=== PATIENT | male | born 1980 | race Caucasian/White ===

== ENCOUNTER 2019-05-15 14:02 | Emergency (ER) | payer OTHER ==
[~2019-05-15] VITALS: Ht 177.8 cm; Wt 90.7 kg
[2019-05-15] MEDS ORDERED: NASAL MIST126 ML (14:25)
[2019-05-15] MEDS ORDERED: TYLENOL325 MG (14:25)
== END 2019-05-15 16:20 | disposition home or self-care (01) ==
LOC: ER 14:02
DX: B34.9 Viral infection, unspecified (principal)

== ENCOUNTER 2019-05-27 03:15 | Emergency (ER) | payer OTHER ==
[~2019-05-27] VITALS: Ht 177.8 cm; Wt 90.7 kg
[~2019-05-27 03:15] MED LIST: NASAL MIST126 ML; TYLENOL325 MG
== END 2019-05-27 05:36 | disposition home or self-care (01) ==
LOC: ER 03:15
DX: R06.02 Shortness of breath (principal); F41.8 Other specified anxiety disorders

== ENCOUNTER 2020-02-21 18:20 | Emergency (ER) | payer OTHER ==
[~2020-02-21] VITALS: Ht 177.8 cm; Wt 90.7 kg
[2020-02-21] MEDS ORDERED: PANADOL EXTRA500 MG (18:40)
== END 2020-02-21 22:10 | disposition home or self-care (01) ==
LOC: ER 18:20
DX: J31.2 Chronic pharyngitis (principal); Z03.818 Encounter for observation for suspected exposure to other biological agents ruled out

== ENCOUNTER 2020-03-01 15:06 | Emergency (ER) | payer OTHER ==
[~2020-03-01] VITALS: Ht 177.8 cm; Wt 90.7 kg
[~2020-03-01 15:06] MED LIST changes: +PANADOL EXTRA500 MG
== END 2020-03-01 18:34 | disposition home or self-care (01) ==
LOC: ER 15:06
DX: R59.0 Localized enlarged lymph nodes (principal)

== ENCOUNTER 2020-10-21 02:31 | Emergency (ER) | payer OTHER ==
[~2020-10-21] VITALS: Ht 177.8 cm; Wt 90.7 kg
== END 2020-10-21 04:42 | disposition home or self-care (01) ==
LOC: ER 02:31
DX: J02.8 Acute pharyngitis due to other specified organisms (principal); Z20.822 Contact with and (suspected) exposure to COVID-19

== ENCOUNTER 2021-01-14 21:18 | Emergency (ER) | payer OTHER ==
[~2021-01-14] VITALS: Ht 170.2 cm; Wt 97.5 kg
[2021-01-14] MEDS ORDERED: CARAFATE1 GM PO (21:58)
== END 2021-01-14 22:06 | disposition home or self-care (01) ==
LOC: ER 21:18
DX: E16.1 Other hypoglycemia (principal)

== ENCOUNTER 2021-01-31 15:16 | Emergency (ER) | payer OTHER ==
[~2021-01-31] VITALS: Ht 177.8 cm; Wt 90.7 kg
[~2021-01-31 15:16] MED LIST changes: +CARAFATE1 GM PO
[2021-01-31] MEDS ORDERED: OMEPRAZOLE (16:06)
== END 2021-01-31 16:48 | disposition home or self-care (01) ==
LOC: ER 15:16
DX: R03.0 Elevated blood-pressure reading, without diagnosis of hypertension (principal)

== ENCOUNTER 2021-05-05 23:18 | Emergency (ER) | payer OTHER ==
[~2021-05-05] VITALS: Ht 177.8 cm; Wt 90.7 kg
[~2021-05-05 23:18] MED LIST changes: +OMEPRAZOLE
[2021-05-06] MEDS ORDERED: ZYNCOF 20-400120 ML PO (03:26)
== END 2021-05-06 04:07 | disposition home or self-care (01) ==
LOC: ER 23:18
DX: U07.1 COVID-19 (principal); R50.9 Fever, unspecified; Z88.6 Allergy status to analgesic agent; Z88.0 Allergy status to penicillin

== ENCOUNTER 2021-05-10 20:20 | Emergency (ER) | payer OTHER ==
[~2021-05-10] VITALS: Ht 177.8 cm; Wt 90.7 kg
[~2021-05-10 20:20] MED LIST changes: +ZYNCOF 20-400120 ML PO
== END 2021-05-10 23:51 | disposition home or self-care (01) ==
LOC: ER 20:20
DX: R05.3 Chronic cough (principal); U09.9 Post COVID-19 condition, unspecified; Z88.6 Allergy status to analgesic agent; Z88.0 Allergy status to penicillin

== ENCOUNTER 2021-08-10 22:01 | Emergency (ER) | payer OTHER ==
[~2021-08-10] VITALS: Ht 177.8 cm; Wt 90.7 kg
== END 2021-08-11 00:02 | disposition home or self-care (01) ==
LOC: ER 22:01
DX: K59.00 Constipation, unspecified (principal); R10.9 Unspecified abdominal pain; F41.8 Other specified anxiety disorders; F55.3 Abuse of steroids or hormones; Z88.6 Allergy status to analgesic agent; Z88.0 Allergy status to penicillin

== ENCOUNTER 2024-08-31 22:58 | Emergency (ER) | payer OTHER ==
[~2024-08-31] VITALS: Ht 177.8 cm; Wt 100.7 kg
[2024-08-31 23:24] VITALS: BP 148/88; O2SAT 98
[2024-09-01] MEDS ORDERED: HYOSCYAMINE SULFATE 0.125 MG TAB.SUBL SL ONE (01:00)
[2024-09-01] MEDS ORDERED: FAMOTIDINE/PF 20 MG/2 ML VIAL IV PUSH STA (01:00)
[2024-09-01] MEDS ORDERED: ONDANSETRON HCL 2 MG/ML VIAL IV STA (01:01)
[2024-09-01] MEDS ORDERED: ONDANSETRON HCL 2 MG/ML VIAL ONE (01:19)
[2024-09-01] MEDS ORDERED: HYOSCYAMINE SULFATE 0.125 MG TAB.SUBL ONE (01:19)
[2024-09-01] MEDS ORDERED: FAMOTIDINE/PF 20 MG/2 ML VIAL ONE (01:20)
[2024-09-01 01:57] LABS: BASO % 0.5 % (0.1-1.2); EOS # 0.01 (0.04-0.54); EOS % 0.2 % (0.7-7.0); LYMPH # 1.10 (1.18-3.74); LYMPH % 18.5 % (19.3-53.1); MEAN PLATELET VOLUME 10.10 fl (9.4-12.4); MONO # 0.45 (0.24-0.82); MONO % 7.6 % (4.7-12.5); NEUT # 4.32 (1.56-6.13); NEUT % 72.9 % (34.0-71.1); RED CELL DISTRIBUTION WIDTH 14.8 % (11.6-14.4)
[2024-09-01] MEDS ORDERED: LEVSIN/SL0.125 MG SL (05:32)
[2024-09-01] MEDS ORDERED: INTESTINEX680 M1 PO (05:32)
[2024-09-01] MEDS ORDERED: ZOFRAN8 MG PO (05:32)
[2024-09-01] MEDS ORDERED: MIRALAX510 GM PO (05:33)
== END 2024-09-01 05:41 | disposition home or self-care (01) ==
LOC: ER 22:58
PROVIDERS: General Practice
DX: R10.84 Generalized abdominal pain (principal); R53.81 Other malaise; Z88.6 Allergy status to analgesic agent; Z88.0 Allergy status to penicillin